=== PATIENT | female | born 1955 | race Caucasian/White ===

== ENCOUNTER → 2020-09-26 | Outpatient (CLI) | payer MEDICARE ==
[2020-09-26 10:33] LABS: BASOPHILS % (AUTO) 1 % (0-1); EOSINOPHILS % (AUTO) 2 % (1-7); LYMPHOCYTES % (AUTO) 20 % (22-44); MEAN CORPUSCULAR HEMOGLOBIN 26.1 pg (27.0-34.8); MEAN CORPUSCULAR HGB CONC 33.3 g/dL (32.4-35.8); MEAN PLATELET VOLUME 7.4 fL (7.4-10.4); MONOCYTES % (AUTO) 6 % (2-9); NEUTROPHILS % (AUTO) 71 % (42-75); PLATELET COUNT 474 x10^3/uL (130-400); RED CELL DISTRIBUTION WIDTH 16.7 % (9.6-15.2)
[2020-09-26 10:35] LABS: MD NO
[2020-09-26 10:45] LABS: ALBUMIN 3.5 g/dL (3.4-5.0); ANION GAP 7 mmol/L (5-15); CALCIUM 9.4 mg/dL (8.5-10.1); CHLORIDE 106 mmol/L (98-107); INTERNATIONAL NORMALIZED RATIO 1.07 (0.93-1.1); PROTHROMBIN TIME 11.4 Seconds (9.6-11.5)
[2020-09-26 10:50] LABS: ALANINE AMINOTRANSFERASE 22 U/L (12-78); ALKALINE PHOSPHATASE 96 U/L (45-117); BILIRUBIN,TOTAL 0.4 mg/dL (0.2-1.0); CREATININE 0.84 mg/dL (0.55-1.02); TOTAL PROTEIN 8.1 g/dL (6.4-8.2)
== END | disposition home or self-care (01) ==
LOC: STAR 09:08
PROVIDERS: ATTEND Obstetrics & Gynecology
DX: Z01.812 Encounter for preprocedural laboratory examination (principal); Z20.822 Contact with and (suspected) exposure to COVID-19; R93.89 Abnormal findings on diagnostic imaging of other specified body structures; R19.03 Right lower quadrant abdominal swelling, mass and lump
CPT/HCPCS: 36415; 71046; 80053; 85025; 85610; 85730; 86304; 93005; U0003; U0005

== ENCOUNTER 2020-10-02 07:13 | Day surgery (SDC) | payer MEDICARE, OTHER ==
[~2020-10-02] VITALS: Ht 165.1 cm; Wt 70.9 kg
[~2020-10-02 07:13] MED LIST: BUPIVACAINE/PF 0.25% ONE; HEPARIN 1,000 UNITS/ML, 10ML ONE
[2020-10-02] MEDS ORDERED: no home meds per pt (07:54)
[2020-10-02 07:56] VITALS: BP 113/73
[2020-10-02] MEDS ORDERED: CHLORHEXIDINE 15 ML UDC ONE (07:57)
[2020-10-02] MEDS ORDERED: CEFOTETAN PMX 2GM/50ML 50 ML IVPB ONE (08:00)
[2020-10-02] MEDS ORDERED: CHLORHEXIDINE 15 ML UDC PO ONE (08:00)
[2020-10-02] MEDS ORDERED: LACTATED RINGERS 1,000 ML IV SCH (08:00)
[2020-10-02] MEDS ORDERED: FENTANYL PF 250 MCG/5ML ONE ×2 (08:49→12:20)
[2020-10-02] MEDS ORDERED: MIDAZOLAM 1 MG/ML, 2ML ONE (08:49)
[2020-10-02] MEDS ORDERED: INDOCYANINE GREEN 25 MG VIAL ONE (09:42)
[2020-10-02] MEDS ORDERED: KETOROLAC 30 MG/1 ML ONE (09:57)
[2020-10-02] MEDS ORDERED: LIDOCAINE 1%, 20ML ONE (09:57)
[2020-10-02] MEDS ORDERED: METHOCARBAMOL 1,000 MG in DEXTROSE 5% 100 ML IV PRN (10:00)
[2020-10-02] MEDS ORDERED: ONDANSETRON 2MG/ML, 2ML IVPush PRN (10:00)
[2020-10-02] MEDS ORDERED: MEPERIDINE/PF 25MG/0.5ML IVPush PRN (10:00)
[2020-10-02] MEDS ORDERED: PROMETHAZINE 25 MG/ML, 1ML IVPush PRN (10:00)
[2020-10-02] MEDS ORDERED: LORazepam 2 MG/ML, 1ML IVPush PRN (10:00)
[2020-10-02] MEDS ORDERED: hydrALAzine 20 MG/ML, 1ML IV PRN (10:00)
[2020-10-02] MEDS ORDERED: LABETALOL 5MG/ML, 20ML IV PRN (10:00)
[2020-10-02] MEDS ORDERED: HYDROmorphone 1 MG/ML, 1ML INJ IVPush PRN (10:00)
[2020-10-02] MEDS ORDERED: EPHEDRINE 50 MG/ML, 1ML IVPush PRN (10:00)
[2020-10-02] MEDS ORDERED: ACETAMINOPHEN 325 MG TABLET PO PRN (10:00)
[2020-10-02] MEDS ORDERED: OXYcodone 5 MG/5 ML ORAL.SOL UDC PO PRN (10:00)
[2020-10-02] MEDS ORDERED: FENTANYL PF 100 MCG/2ML IV PRN (10:00)
[2020-10-02] MEDS ORDERED: BUPIVACAINE/PF-EPI 0.25% 1:200K INFIL ONE (10:38)
[2020-10-02] MEDS ORDERED: ONDANSETRON 2MG/ML, 2ML ONE (11:59)
[2020-10-02] MEDS ORDERED: PROPOFOL 10 MG/ML, 20ML ONE (11:59)
[2020-10-02] MEDS ORDERED: ROCURONIUM 10MG/ML,5ML ONE (11:59)
[2020-10-02] MEDS ORDERED: SUCCINYLCHOLINE 20 MG/ML, 10ML ONE (11:59)
[2020-10-02] MEDS ORDERED: DEXAMETHASONE 4 MG/ML, 1ML ONE (11:59)
[2020-10-02] MEDS ORDERED: NEOSTIGMINE 1 MG/ML, 10ML ONE (11:59)
[2020-10-02] MEDS ORDERED: CEFAZOLIN 1,000 MG ONE (11:59)
[2020-10-02] MEDS ORDERED: GLYCOPYRROLATE 0.2MG/1ML, 5ML ONE (11:59)
[2020-10-02] MEDS ORDERED: PROPOFOL 50 ML ONE (12:00)
[2020-10-02] MEDS ORDERED: OXYcodone 5 MG/5 ML ORAL.SOL UDC ONE (15:51)
== END 2020-10-02 16:55 | disposition home or self-care (01) ==
LOC: OUT 07:13
PROVIDERS: ATTEND Obstetrics & Gynecology
DX: N85.8 Other specified noninflammatory disorders of uterus (principal); C55 Malignant neoplasm of uterus, part unspecified; D25.9 Leiomyoma of uterus, unspecified; N73.6 Female pelvic peritoneal adhesions (postinfective); D64.9 Anemia, unspecified; R14.0 Abdominal distension (gaseous); Z79.82 Long term (current) use of aspirin; Z79.899 Other long term (current) drug therapy; Z80.8 Family history of malignant neoplasm of other organs or systems
CPT/HCPCS: 36415; 49321; 58554; 74018; 86850; 86900; 86923; 88305; 88307; J0330; J0690; J1100; J1885; J2250; J2405; J2704; J2710; J3010; J7120; J1644